=== PATIENT | male | born 1975 | race Caucasian/White ===

== ENCOUNTER 2024-08-13 02:54 | Emergency (ER) | payer MEDICARE, MEDICAID ==
[~2024-08-13] VITALS: Ht 180.3 cm; Wt 128.0 kg
[2024-08-13 03:15] VITALS: O2SAT 98
[2024-08-13] MEDS: ACETAMINOPHEN 325MG TABLET PO STA (08:41)
[2024-08-13 09:00] LABS: BASOPHILS % 0.3 % (0.0-2.0); EOSINOPHILS % 0.8 % (0.0-5.0); HEMATOCRIT. 42.9 % (42.0-52.0); HEMOGLOBIN. 13.5 g/dL (14.0-18.0); LYMPHOCYTES % 39.3 % (20.0-50.0); MEAN CORPUSCULAR HEMOGLOBIN 27.5 pg (28.0-32.0); MEAN CORPUSCULAR HGB CONC 31.5 g/dL (31.0-37.0); MEAN CORPUSCULAR VOLUME 87.1 fL (80.0-94.0); MEAN PLATELET VOLUME 8.5 fl (7.4-10.4); MONOCYTES % 5.1 % (2.0-8.0); NEUTROPHILS % 54.5 % (40.0-76.0); PLATELET 218 x1000/uL (130-400); RED BLOOD CELL COUNT 4.92 mill/uL (4.7-6.1); RED CELL DISTRIBUTION WIDTH 15.5 % (11.6-14.6); WHITE BLOOD COUNT 5.5 x1000/uL (4.5-11.0)
[2024-08-13 09:10] LABS: CARBON DIOXIDE 25 mEq/L (21-32); CHLORIDE 111 mEq/L (98-107); POTASSIUM 3.8 mEq/L (3.5-5.1); SODIUM 144 mEq/L (136-145)
[2024-08-13 09:16] LABS: CREATININE 0.9 mg/dL (0.6-1.3); GLUCOSE 105 mg/dL (70-105); UREA NITROGEN BLOOD 11 mg/dL (9-23)
[2024-08-13 09:39] VITALS: BP 119/74; PULSE 62; RESP 18; TEMP 37.05852; O2SAT 95
[2024-08-13 09:58] LABS: TROPONIN I HIGH SENSITIVITY < 4 ng/L (3.0-53)
[2024-08-13] MEDS ORDERED: TOPUD PO (10:01)
== END 2024-08-13 10:13 | disposition home or self-care (01) ==
LOC: ER 02:54
DX: M25.512 Pain in left shoulder (principal)
CPT/HCPCS: 36415; 71045; 73030; 80048; 83880; 84484; 85025; 93005; 99285

== ENCOUNTER 2025-03-28 15:44 | Emergency (ER) | payer MEDICARE, MEDICAID ==
[~2025-03-28] VITALS: Ht 177.8 cm; Wt 109.0 kg
[~2025-03-28 15:44] MED LIST: TOPUD PO
[2025-03-28 15:48] VITALS: BP 130/52; PULSE 65; RESP 16; TEMP 37.1; O2SAT 96
== END 2025-03-29 01:28 | disposition left against medical advice (07) ==
LOC: ER 15:44
DX: F91.8 Other conduct disorders (principal); Z53.21 Procedure and treatment not carried out due to patient leaving prior to being seen by health care provider